=== PATIENT | male | born 1980 | race Caucasian/White ===

== ENCOUNTER 2018-01-26 05:34 | Inpatient (IN) | payer OTHER ==
[2018-01-26] MEDS ORDERED: CEFAZOLIN 2 GM/50 ML (PMX) 50 ML IVPB (07:00)
[2018-01-26] MEDS ORDERED: ZOLPIDEM 5 MG TAB PO (07:00)
[2018-01-26] MEDS ORDERED: CEPASTAT LOZENGE MT (07:00)
[2018-01-26] MEDS ORDERED: NALOXONE (0.4 MG/ML) INJ IV (07:00)
[2018-01-26] MEDS ORDERED: HYDROmorphONE 0.5 MG/0.5 ML SYG IV (07:00)
[2018-01-26] MEDS ORDERED: HYDROmorphONE (0.2 MG/ML) 10ML SYG IV (07:30)
[2018-01-26] MEDS ORDERED: hydrALAzine 20 MG INJ IV (07:30)
[2018-01-26] MEDS ORDERED: MEPERIDINE 25 MG INJ IV (07:30)
[2018-01-26] MEDS ORDERED: LABETALOL HCL 20MG INJ IV (07:30)
[2018-01-26] MEDS ORDERED: DIPHENHYDRAMINE 50 MG INJ IV (07:30)
[2018-01-26] MEDS ORDERED: THROMBIN(HUM PLAS)/FIBRINOG/CA 5 ML VIAL TOP (08:00)
[2018-01-26] MEDS ORDERED: THROMBIN 5000 UNIT VIAL (08:14)
[2018-01-26] MEDS ORDERED: OXYMETAZOLINE 0.05% 15 ML NAS SPRAY NASAL (08:32)
[2018-01-26] MEDS: LIDOCAINE 1%/EPI 30 ML INJ (08:56)
[2018-01-26] MEDS: POLYMYXIN/BACITRACIN 1L IRRIG (08:56)
[2018-01-26] MEDS: CA CHLORIDE 10% 10 ML SYRINGE (08:57)
[2018-01-26] MEDS: SURGIFOAM POWDER 1 GM KIT (08:58)
[2018-01-26] MEDS: GELATIN SIZE 100 SPONGE (08:59)
[2018-01-26] MEDS: HEPARIN 1000 UNITS/ML 10 ML INJ (09:00)
[2018-01-26] MEDS: THROMBIN 5000 UNIT VIAL (09:00)
[2018-01-26] MEDS: HYDROmorphONE 0.2 MG/ML PCA IV (11:25)
[2018-01-26] MEDS: LACTATED RINGER'S 1,000 ML IV* (11:28)
[2018-01-26] MEDS: CEFAZOLIN 1 GM/50 ML (PMX) 50 ML IVPB ×2 (11:29→17:43)
[2018-01-26] MEDS: HYDROmorphONE (0.2 MG/ML) 10ML SYG IV ×3 (11:47→12:24)
[2018-01-26] MEDS: ONDANSETRON 4 MG INJ IV ×2 (11:53→21:32)
[2018-01-26] MEDS: DOCUSATE SODIUM 100 MG CAP PO ×2 (12:14→21:03)
[2018-01-26] MEDS: D5W-0.45 NACL + KCL 20 MEQ 1,000 ML IV ×2 (13:33→16:42)
[2018-01-26] MEDS: ACETAMINOPHEN 325 MG TAB PO (18:30)
[2018-01-26] MEDS: SOD CHLORIDE 0.9% 1,000 ML IV (18:43)
[2018-01-26] MEDS: DIPHENHYDRAMINE 50 MG INJ IV (21:32)
[2018-01-27] MEDS ORDERED: CEFAZOLIN 1 GM INJ (00:12)
[2018-01-27] MEDS ORDERED: METOCLOPRAMIDE 10 MG INJ (00:12)
[2018-01-27] MEDS ORDERED: SUCCINYLCHOLINE CHLORIDE 100 MG/5 ML SYG IV (00:12)
[2018-01-27] MEDS ORDERED: HYDROmorphONE 2 MG/ML SYG (00:12)
[2018-01-27] MEDS ORDERED: MIDAZOLAM 1 MG/ML 2 ML INJ ×2 (00:12)
[2018-01-27] MEDS ORDERED: ONDANSETRON 4 MG INJ (00:12)
[2018-01-27] MEDS ORDERED: ROCURONIUM 50 MG INJ ×2 (00:12)
[2018-01-27] MEDS ORDERED: PROPOFOL 20 ML ×2 (00:12)
[2018-01-27] MEDS ORDERED: FENTAnyl 50 MCG/ML VIAL (00:12)
[2018-01-27] MEDS: D5W-0.45 NACL + KCL 20 MEQ 1,000 ML IV ×3 (01:07→22:58)
[2018-01-27] MEDS: CEFAZOLIN 1 GM/50 ML (PMX) 50 ML IVPB (01:08)
[2018-01-27 05:51] LABS: ADD MAN DIFF? NO
[2018-01-27 05:53] LABS: WHITE BLOOD COUNT 7.6 10^3/ul (4.8-10.8)
[2018-01-27 05:53] LABS: BASOPHILS % 0.1 % (0.0-2.0); EOSINOPHILS # 0.1 10^3/ul (0.0-0.5); EOSINOPHILS % 0.7 % (0.0-7.0); HEMATOCRIT 36.8 % (42.0-52.0); HEMOGLOBIN 12.8 g/dl (14.0-18.0); LYMPHOCYTES # 1.9 10^3/ul (0.8-2.9); LYMPHOCYTES % 24.9 % (15.0-51.0); MEAN CORPUSCULAR HEMOGLOBIN 30.3 pg (29.0-33.0); MEAN CORPUSCULAR HGB CONC 34.8 g/dl (32.0-37.0); MEAN CORPUSCULAR VOLUME 87.2 fl (82.0-101.0); MEAN PLATELET VOLUME 9.9 fl (7.4-10.4); MONOCYTE # 0.9 10^3/ul (0.3-0.9); MONOCYTES % 11.3 % (0.0-11.0); NEUTROPHIL # 4.8 10^3/ul (1.6-7.5); NEUTROPHILS % 62.7 % (39.0-77.0); PLATELET COUNT 261 10^3/UL (140-415); RED BLOOD COUNT 4.22 10^6/ul (4.70-6.10); RED CELL DISTRIBUTION WIDTH 12.7 % (11.5-14.5)
[2018-01-27 06:41] LABS: ANION GAP 13 (8-16); BLOOD UREA NITROGEN 8 mg/dl (7-20); CALCIUM 8.7 mg/dl (8.4-10.2); CARBON DIOXIDE 30 mmol/L (21-31); CHLORIDE 104 mmol/L (97-110); CREATININE 0.85 mg/dl (0.61-1.24); GLUCOSE 101 mg/dl (70-220); MAGNESIUM 1.8 mg/dl (1.7-2.5); POTASSIUM 3.9 mmol/L (3.5-5.1); SODIUM 143 mmol/L (135-144)
[2018-01-27] MEDS: ACETAMINOPHEN 325 MG TAB PO (07:38)
[2018-01-27] MEDS: HYDROCODONE/APAP (10/325) TAB PO ×4 (09:22→22:09)
[2018-01-27] MEDS: DOCUSATE SODIUM 100 MG CAP PO ×2 (09:22→19:53)
[2018-01-27] MEDS ORDERED: HYDROCODONE/APAP (10/325) TAB PO (12:00)
[2018-01-27] MEDS: CARISOPRODOL 350 MG TAB PO ×2 (12:53→19:53)
[2018-01-28] MEDS: HYDROCODONE/APAP (10/325) TAB PO ×5 (03:23→21:56)
[2018-01-28] MEDS: D5W-0.45 NACL + KCL 20 MEQ 1,000 ML IV ×2 (08:58→18:58)
[2018-01-28] MEDS: DOCUSATE SODIUM 100 MG CAP PO ×2 (09:09→19:59)
[2018-01-28] MEDS: AL HYDROX/MG HYDROX/SIMETH 30 ML CUP PO ×2 (09:09→19:59)
[2018-01-28] MEDS: CAFFEINE 200 MG TABLET PO (10:26)
[2018-01-28] MEDS: BISACODYL 10 MG SUPP PR (23:08)
[2018-01-29] MEDS: HYDROCODONE/APAP (10/325) TAB PO ×2 (02:52→09:22)
[2018-01-29] MEDS: D5W-0.45 NACL + KCL 20 MEQ 1,000 ML IV (04:58)
[2018-01-29] MEDS: DOCUSATE SODIUM 100 MG CAP PO (09:22)
[2018-01-29] MEDS: AL HYDROX/MG HYDROX/SIMETH 30 ML CUP PO (13:17)
== END 2018-01-29 15:45 | disposition home or self-care (01) | DRG 519 ==
LOC: REC 05:34 → MS1 12:54
PROC: 01NB0ZZ Release Lumbar Nerve, Open Approach (ICD-10-PCS; principal; 2018-01-26 07:00)
PROC: 00QT0ZZ Repair Spinal Meninges, Open Approach (ICD-10-PCS; 2018-01-26 07:00)
PROC: 4A11X4G Monitoring of Peripheral Nervous Electrical Activity, Intraoperative, External Approach (ICD-10-PCS; 2018-01-26 07:00)
DX: M48.07 Spinal stenosis, lumbosacral region (principal); G97.41 Accidental puncture or laceration of dura during a procedure; M54.10 Radiculopathy, site unspecified; Y83.8 Other surgical procedures as the cause of abnormal reaction of the patient, or of later complication, without mention of misadventure at the time of the procedure; Y92.234 Operating room of hospital as the place of occurrence of the external cause
CPT/HCPCS: 72020; 80048; 83735; 85025; 86999; 97116; 97162; 97530